=== PATIENT | male | born 1940 | race Caucasian/White ===

== ENCOUNTER 2017-08-01 16:24 | Inpatient (IN) ==
--- NOTE | 2017-08-01 18:50 | Family Practice History&Phys ---
History of Present Illness Chief complaint: wheezing HPI: I was called by our on-call nurse and the patient was having some wheezing audibly. She evaluated him and found that he needed supplemental oxygen and struggling to breathe more than he had been in last 24 hours. We transferred him [facility] for corrective mission. He denies shortness of breath wheezing chest pain tightness in the chest. He denies abdominal pain. He denies any problem. He does have moderate dementia. [facility] Patient Stated Medical History Dementia Yes Other HEENT Yes: GLASSES Congestive Heart Failure Yes Chronic Obstructive Pulmonary Yes Disease (COPD) - Social History Smoking status: Former smoker (recently quit) Current residence: Apartment/Private Home Medications Home Medications Medication Instructions Recorded Confirmed Type Aspirin Chewable [ASA] 81 mg PO DAILY tab.chew 07/31/17 Rx Carvedilol [Coreg] 12.5 mg PO BIDWM tab 07/31/17 Rx Cefdinir 300 mg PO Q12HR 4 Days cap 07/31/17 Rx Lisinopril [Prinivil] 20 mg PO DAILY tab 07/31/17 Rx Allergies Allergy/AdvReac Type Severity Reaction Status Date / Time No Known Allergies Allergy Verified 07/25/17 22:01 Exam Vital signs: Temperature 97.8 F 08/01/17 18:06 Pulse Rate 94 08/01/17 18:06 Respiratory Rate 36 H 08/01/17 18:06 Blood Pressure 133/84 08/01/17 18:06 Pulse Oximetry 92 08/01/17 18:06 - Constitutional mild distress, well developed - Routine HEENT Exam Head: Present: normocephalic, atraumatic Eye: Present: PERRL ENT: Present: mucous membranes moist Throat: normal inspection - Routine Neck Exam Present: supple - Routine Respiratory Exam Present: dyspnea, decreased breath sounds, prolonged expiratory phase - Routine Cardiovascular Exam Present: irregularly irregular - Routine Abdominal Exam Present: distended - Routine Extremities Exam Present: edema Comments: pitting edema at the ankle benedict. Results - Labs Result diagrams: 08/01/17 18:40 08/01/17 18:40 All other labs normal. Assessment and Plan - Assessment and Plan (1) Acute exacerbation of chronic obstructive airways disease Current visit: No Status: Acute Starting on duoneb and oxygen tks above 90. Also starting on Lasix (2) Congestive heart failure Current visit: No Status: Acute (3) Acute exacerbation of CHF (congestive heart failure) Current visit: No Status: Acute (4) Alzheimer's dementia without behavioral disturbance Current visit: No Status: Chronic (5) Sepsis Current visit: No Status: Acute
[2017-08-01] MEDS: FUROSEMIDE 40 MG/4 ML INJECTION IVP SCH ×2 (18:51→20:22)
[2017-08-01] MEDS: ALBUTEROL/IPRATROPIUM 2.5mg-0.5mg/3ml NEB AEROSOL SCH (19:10)
[2017-08-01] MEDS ORDERED: CEFDINIR 300 MG CAPSULE PO SCH ×2 (21:00)
[2017-08-01] MEDS ORDERED: MORPHINE SULFATE 2mg INJ IVP PRN (21:24)
[2017-08-01] MEDS: CEFTRIAXONE 1 G in NS 100 ML IV SCH (21:58)
[2017-08-01] MEDS ORDERED: LORazepam 0.5 MG TABLET PO PRN (23:47)
[2017-08-01] MEDS ORDERED: CEFTRIAXONE 500 MG INJECTION IM ONE (23:49)
[2017-08-01] MEDS: ACETAMINOPHEN 325 MG TABLET PO PRN (23:55)
[2017-08-02] MEDS ORDERED: ALBUTEROL 2.5mg/3ml (0.083%) NEB AEROSOL PRN (00:02)
[2017-08-02] MEDS: ALBUTEROL/IPRATROPIUM 2.5mg-0.5mg/3ml NEB AEROSOL SCH ×4 (07:57→19:47)
[2017-08-02] MEDS ORDERED: CARVEDILOL 12.5 MG TABLET PO SCH (08:00)
[2017-08-02] MEDS: LISINOPRIL 20 MG TABLET PO SCH (08:08)
[2017-08-02] MEDS: POLYETHYL GLYCOL 3350 17gm PACKET PO SCH (08:08)
[2017-08-02] MEDS: ASPIRIN 81 MG CHEWABLE TABLET PO SCH (08:08)
[2017-08-02] MEDS: CARVEDILOL 12.5 MG TABLET PO SCH ×2 (08:08→17:55)
[2017-08-02] MEDS: ACETAMINOPHEN 325 MG TABLET PO PRN ×2 (08:09→20:09)
[2017-08-02] MEDS: SALINE FLUSH 10ml SYRINGE IV PRN ×3 (09:00→18:04)
[2017-08-02] MEDS ORDERED: LISINOPRIL 20 MG TABLET PO SCH (09:00)
[2017-08-02] MEDS ORDERED: ASPIRIN 81 MG CHEWABLE TABLET PO SCH (09:00)
--- NOTE | 2017-08-02 09:00 | XRay Report ---
Indication: sob PROCEDURE: XR chest 1V: Encounter: Initial Comparison: July 27, 2017 Findings: The lungs are stable in appearance without new focal airspace consolidation. Continued hypoinflation. There is no pleural effusion or pneumothorax. The heart size, pulmonary vascularity and mediastinal contours are unchanged. IMPRESSION: Stable appearance of the chest without acute cardiopulmonary disease. .
--- NOTE | 2017-08-02 09:08 | Family Practice Progress Note ---
Progress Note-A&P - Time Spent With Patient Total time spent is greater than 50% in coordination of care (as documented) at patient's floor/unit and/or counseling patient: (1) Acute exacerbation of chronic obstructive airways disease Status: Acute Assessment and plan: He is continuing to get duoneb 4 times a day and oxygen. Albuterol was ordered apparently last night by the hospitalist. Generally he looks more comfortable breathing and it appears to be improved. Current Visit: No (2) Congestive heart failure Status: Acute Assessment and plan: He has improved oxygenation and less trouble breathing. Continue current diuretics. Current Visit: No (3) Acute exacerbation of CHF (congestive heart failure) Status: Acute Current Visit: No (4) Alzheimer's dementia without behavioral disturbance Status: Chronic Current Visit: No (5) Sepsis Status: Acute Assessment and plan: IV Rocephin is ordered daily. White blood cell count is improved. Current Visit: No (6) Delirium due to another medical condition Status: Acute Assessment and plan: Ativan was ordered last night. I think this will improve as his medical conditions improve. Current Visit: Yes (7) Back pain Status: Acute Assessment and plan: Currently Tylenol is ordered. Current Visit: Yes (8) Abdominal distension Status: Acute Assessment and plan: I'm going to order abdominal series today Current Visit: Yes Subjective - Subjective Principal diagnosis: CHF and COPD excerbation Interval history: He reports that he feels fine. He denies chest pain or troubles breathing or wheezing or tightness in the chest. During the night he did have some back pain and the nurse covering him called the hospitalists instead of me by mistake. He was work morphine and Ativan. He also pulled out his IV site and pulled off telemetry. He responded to Ativan. I was called during the night and ordered Tylenol and discontinued morphine. Exam Vital signs: Temperature 96.9 F 08/02/17 03:53 Pulse Rate 115 H 08/02/17 03:53 Respiratory Rate 28 H 08/02/17 07:57 Blood Pressure 166/86 H 08/02/17 03:53 Pulse Oximetry 93 08/02/17 07:57 Inpatient Medications: Generic Name Dose Route Start Last Admin Trade Name Freq PRN Reason Stop Dose Admin Acetaminophen 650 mg 08/01/17 23:48 08/02/17 08:09 Tylenol PO 650 mg Q8H PRN Administration Pain Albuterol Sulfate 2.5 mg 08/02/17 00:02 Proventil Neb (0.083%) AEROSOL Q4HPRN PRN Albuterol/Ipratropium 3 ml 08/01/17 19:00 08/02/17 07:57 Duoneb AEROSOL 3 ml RTQID VALENCIA Administration Aspirin 81 mg 08/02/17 09:00 08/02/17 08:08 Asa PO 81 mg DAILY VALENCIA Administration Carvedilol 12.5 mg 08/02/17 08:00 08/02/17 08:08 Coreg PO 12.5 mg BIDWM VALENCIA Administration Furosemide 40 mg 08/01/17 21:00 08/01/17 20:22 Lasix 40 Mg/4 Ml IVP Not Given Q12HR VALENCIA Ceftriaxone Sodium 1 g/ Sodium 100 mls @ 200 mls/hr 08/01/17 19:00 08/01/17 22:15 Chloride IV Infused Q24H VALENCIA Infusion Lisinopril 20 mg 08/02/17 09:00 08/02/17 08:08 Prinivil PO 20 mg DAILY VALENCIA Administration Lorazepam 0.5 mg 08/01/17 23:47 Ativan PO Q4H PRN Polyethylene Glycol 17 gm 08/02/17 09:00 08/02/17 08:08 Miralax PO 17 gm DAILY VALENCIA Administration Potassium Chloride 10 meq 08/02/17 08:00 08/02/17 08:09 Micro-K 10 Meq Capsule PO 10 meq BIDWM VALENCIA Administration Discontinued Medications Generic Name Dose Route Start Last Admin Trade Name Freq PRN Reason Stop Dose Admin Cefdinir 300 mg 08/01/17 21:00 Omnicef PO Q12HR VALENCIA Cefdinir 300 mg 08/01/17 21:00 Omnicef PO Q12HR VALENCIA Ceftriaxone Sodium 500 mg 08/01/17 23:49 08/02/17 00:11 Rocephin IM 08/01/17 23:50 500 mg O ONE Administration Lorazepam 0.5 mg 08/01/17 21:25 08/01/17 21:51 Ativan Inj IVP 0.5 mg Q4H PRN Administration Morphine Sulfate 2 mg 08/01/17 21:24 08/01/17 21:54 Morphine Sulfate Inj IVP 2 mg Q2H PRN Administration Pain - Constitutional no acute distress Comments: Generally looks more comfortable breathing and does not appear to be in distress at all today. He seems calm and at peace. He responds appropriately to questions and looks happy. - Routine HEENT Exam Head: Present: normocephalic, atraumatic - Routine Neck Exam Present: supple - Routine Respiratory Exam Comments: He has some audible wheezing. He has expiratory wheezes on auscultation. No crackles. Air movement is poor. - Routine Cardiovascular Exam Present: irregularly irregular Comments: Rate is controlled - Routine Abdominal Exam Comments: His abdomen is firm. It looks distended to me. He has a paucity of bowel sounds. - Routine Extremities Exam Comments: 1+ edema just above the ankles bilaterally
[2017-08-02] MEDS: FUROSEMIDE 40 MG/4 ML INJECTION IVP SCH ×2 (09:33→20:09)
--- NOTE | 2017-08-02 09:50 | XRay Report ---
INDICATION: chf PROCEDURE: CHEST 2-VIEWS UPRIGHT (PA & LAT) Encounter: Initial COMPARISON: August 01, 2017 FINDINGS: Motion artifact. Lungs are grossly clear and stable with mild hypoinflation. The heart size, mediastinal contours and pulmonary vascularity are unchanged. IMPRESSION: Stable appearance of the chest. .
--- NOTE | 2017-08-02 10:05 | XRay Report ---
Indication: abdominal distention PROCEDURE: XR abdomen 2V: Encounter: Initial Comparison: None Findings: No gross free air. The bowel gas pattern shows mild colonic distention with moderate to large amount of stool. No definite abnormally dilated small bowel loops appreciated. Gas is seen to the level of the rectum. Multiple overlying monitoring leads. Impression: Colonic distention suggesting an ileus or constipation. .
[2017-08-02] MEDS: DOCUSATE SODIUM 100 MG CAPSULE PO PRN ×2 (11:40→17:55)
[2017-08-02] MEDS: CEFTRIAXONE 1 G in NS 100 ML IV SCH (18:01)
[2017-08-02] MEDS: NS FLUSH BAG 500ml IV PRN (18:04)
[2017-08-03] MEDS: ALBUTEROL/IPRATROPIUM 2.5mg-0.5mg/3ml NEB AEROSOL SCH ×4 (07:25→19:48)
--- NOTE | 2017-08-03 08:58 | Family Practice Progress Note ---
Progress Note-A&P - Time Spent With Patient Total time spent is greater than 50% in coordination of care (as documented) at patient's floor/unit and/or counseling patient: (1) Acute exacerbation of chronic obstructive airways disease Status: Acute Assessment and plan: Stable. Still has expiratory wheezing and crackles. Current Visit: No (2) Congestive heart failure Status: Acute Current Visit: No (3) Acute exacerbation of CHF (congestive heart failure) Status: Acute Current Visit: No (4) Alzheimer's dementia without behavioral disturbance Status: Chronic Current Visit: No (5) Sepsis Status: Acute Assessment and plan: IV Rocephin is ordered daily. White blood cell count is increasing. I'm checking a chest x-ray. Recheck CBC tomorrow Current Visit: No (6) Delirium due to another medical condition Status: Acute Assessment and plan: No problems in the last 24 hours Current Visit: Yes (7) Back pain Status: Acute Assessment and plan: Currently Tylenol is ordered. Current Visit: Yes (8) Abdominal distension Status: Acute Current Visit: Yes Subjective - Subjective Principal diagnosis: COPD/CHF exacerbation Interval history: He reports he's fine. He has not complained at all during any of the hospitalizations. He denies shortness of breath chest pain. Exam Vital signs: Temperature 95.8 F L 08/03/17 08:07 Pulse Rate 84 08/03/17 08:26 Respiratory Rate 22 08/03/17 08:07 Blood Pressure 140/86 H 08/03/17 08:07 Pulse Oximetry 93 08/03/17 08:26 Inpatient Medications: Generic Name Dose Route Start Last Admin Trade Name Freq PRN Reason Stop Dose Admin Acetaminophen 650 mg 08/01/17 23:48 08/02/17 20:09 Tylenol PO 650 mg Q8H PRN Administration Pain Albuterol Sulfate 2.5 mg 08/02/17 00:02 Proventil Neb (0.083%) AEROSOL Q4HPRN PRN Albuterol/Ipratropium 3 ml 08/01/17 19:00 08/03/17 07:25 Duoneb AEROSOL 3 ml RTQID VALENCIA Administration Aspirin 81 mg 08/02/17 09:00 08/02/17 08:08 Asa PO 81 mg DAILY VALENCIA Administration Carvedilol 12.5 mg 08/02/17 08:00 08/02/17 17:55 Coreg PO 12.5 mg BIDWM VALENCIA Administration Docusate Sodium 100 mg 08/02/17 10:27 08/02/17 17:55 Colace PO 100 mg BID PRN Administration Furosemide 40 mg 08/01/17 21:00 08/02/17 20:09 Lasix 40 Mg/4 Ml IVP 40 mg Q12HR VALENCIA Administration Ceftriaxone Sodium 1 g/ Sodium 100 mls @ 200 mls/hr 08/01/17 19:00 08/02/17 18:38 Chloride IV Infused Q24H VALENCIA Infusion Lisinopril 20 mg 08/02/17 09:00 08/02/17 08:08 Prinivil PO 20 mg DAILY VALENCIA Administration Lorazepam 0.5 mg 08/01/17 23:47 Ativan PO Q4H PRN Magnesium Hydroxide 30 ml 08/02/17 10:27 08/02/17 11:40 Mom PO 30 ml DAILY PRN Administration Constipation Polyethylene Glycol 17 gm 08/02/17 09:00 08/02/17 08:08 Miralax PO 17 gm DAILY VALENCIA Administration Potassium Chloride 10 meq 08/02/17 08:00 08/02/17 17:55 Micro-K 10 Meq Capsule PO 10 meq BIDWM VALENCIA Administration Sodium Chloride 10 ml 08/02/17 18:03 08/02/17 18:04 Iv Flush IV 10 ml PRN PRN Administration Flushing Sodium Chloride 500 ml 08/02/17 18:03 08/02/17 18:04 Normal Saline IV 500 ml PRN PRN Administration Discontinued Medications Generic Name Dose Route Start Last Admin Trade Name Freq PRN Reason Stop Dose Admin Cefdinir 300 mg 08/01/17 21:00 Omnicef PO Q12HR VALENCIA Cefdinir 300 mg 08/01/17 21:00 Omnicef PO Q12HR VALENCIA Ceftriaxone Sodium 500 mg 08/01/17 23:49 08/02/17 00:11 Rocephin IM 08/01/17 23:50 500 mg O ONE Administration Lorazepam 0.5 mg 08/01/17 21:25 08/01/17 21:51 Ativan Inj IVP 0.5 mg Q4H PRN Administration Morphine Sulfate 2 mg 08/01/17 21:24 08/01/17 21:54 Morphine Sulfate Inj IVP 2 mg Q2H PRN Administration Pain - Constitutional no acute distress - Routine HEENT Exam Head: Present: normocephalic - Routine Respiratory Exam Present: decreased breath sounds Comments: He has some audible crackles when the breeze. Especially expiratory. He is not retracting. - Routine Cardiovascular Exam Present: irregularly irregular - Routine Abdominal Exam Comments: Less firm today. - Routine Extremities Exam Comments: No pitting edema
[2017-08-03] MEDS: LISINOPRIL 20 MG TABLET PO SCH (09:51)
[2017-08-03] MEDS: CARVEDILOL 12.5 MG TABLET PO SCH ×2 (09:51→17:24)
[2017-08-03] MEDS: ASPIRIN 81 MG CHEWABLE TABLET PO SCH (09:51)
[2017-08-03] MEDS: DOCUSATE SODIUM 100 MG CAPSULE PO PRN (09:51)
[2017-08-03] MEDS: POLYETHYL GLYCOL 3350 17gm PACKET PO SCH (09:52)
[2017-08-03] MEDS: FUROSEMIDE 40 MG/4 ML INJECTION IVP SCH ×2 (09:52→20:11)
[2017-08-03] MEDS ORDERED: FLEET PHOSPHO - SODA ENEMA 133ml PR PRN (14:24)
--- NOTE | 2017-08-03 15:33 | XRay Report ---
LOCATION OF DICTATION: [facility] EXAM: XR chest 2V HISTORY: sob, increasing wbc COMPARISON: No prior studies available for comparison. FINDINGS: The heart size is normal. The mediastinal configuration is unremarkable. Limited depth of inspiration with bibasilar atelectasis. There are no consolidating opacities or pleural effusions. There is no evidence for a pneumothorax. Moderate spondylosis of the thoracic spine. IMPRESSION: Limited depth of inspiration with crowding of the interstitial lung markings and bibasilar atelectasis without evidence for developing pneumonia. The heart size is within normal limits. .
[2017-08-03 16:35] VITALS: BMI 34.4
[2017-08-03] MEDS: ACETAMINOPHEN 325 MG TABLET PO PRN (17:24)
[2017-08-03] MEDS: NS FLUSH BAG 500ml IV PRN (17:25)
[2017-08-03] MEDS: CEFTRIAXONE 1 G in NS 100 ML IV SCH (18:09)
--- NOTE | 2017-08-04 06:45 | Family Practice Progress Note ---
Progress Note-A&P - Time Spent With Patient Total time spent is greater than 50% in coordination of care (as documented) at patient's floor/unit and/or counseling patient: (1) Acute exacerbation of chronic obstructive airways disease Status: Acute Assessment and plan: Oxygenating better. Overall seems to be more stable Current Visit: No (2) Congestive heart failure Status: Acute Assessment and plan: Continue current diuretics. At this point it appears stable Current Visit: No (3) Acute exacerbation of CHF (congestive heart failure) Status: Acute Current Visit: No (4) Alzheimer's dementia without behavioral disturbance Status: Chronic Current Visit: No (5) Sepsis Status: Acute Assessment and plan: My blood cell count is decreasing. He's remained afebrile. Continue Rocephin Current Visit: No (6) Delirium due to another medical condition Status: Acute Assessment and plan: Stable at this point. No behavioral problems in the last 24 hours Current Visit: Yes (7) Back pain Status: Acute Assessment and plan: Currently Tylenol is ordered. Current Visit: Yes (8) Abdominal distension Status: Suspected Current Visit: Yes Subjective - Subjective Interval history: He reports that he feels fine. He denies nausea vomiting, fever. He denies abdominal pain. He denies chest pain or shortness of breath Exam Vital signs: Temperature 97.6 F 08/04/17 04:00 Pulse Rate 84 08/04/17 04:00 Respiratory Rate 14 08/04/17 04:00 Blood Pressure 124/59 08/04/17 04:00 Pulse Oximetry 92 08/04/17 04:00 Inpatient Medications: Generic Name Dose Route Start Last Admin Trade Name Freq PRN Reason Stop Dose Admin Acetaminophen 650 mg 08/01/17 23:48 08/03/17 17:24 Tylenol PO 650 mg Q8H PRN Administration Pain Albuterol Sulfate 2.5 mg 08/02/17 00:02 Proventil Neb (0.083%) AEROSOL Q4HPRN PRN Albuterol/Ipratropium 3 ml 08/01/17 19:00 08/03/17 19:48 Duoneb AEROSOL 3 ml RTQID VALENCIA Administration Aspirin 81 mg 08/02/17 09:00 08/03/17 09:51 Asa PO 81 mg DAILY VALENCIA Administration Carvedilol 12.5 mg 08/02/17 08:00 08/03/17 17:24 Coreg PO 12.5 mg BIDWM VALENCIA Administration Docusate Sodium 100 mg 08/02/17 10:27 08/03/17 09:51 Colace PO 100 mg BID PRN Administration Furosemide 40 mg 08/01/17 21:00 08/03/17 20:11 Lasix 40 Mg/4 Ml IVP 40 mg Q12HR VALENCIA Administration Ceftriaxone Sodium 1 g/ Sodium 100 mls @ 200 mls/hr 08/01/17 19:00 08/03/17 20:34 Chloride IV Infused Q24H VALENCIA Infusion Lisinopril 20 mg 08/02/17 09:00 08/03/17 09:51 Prinivil PO 20 mg DAILY VALENCIA Administration Lorazepam 0.5 mg 08/01/17 23:47 Ativan PO Q4H PRN Magnesium Hydroxide 30 ml 08/02/17 10:27 08/03/17 12:50 Mom PO 30 ml DAILY PRN Administration Constipation Polyethylene Glycol 17 gm 08/02/17 09:00 08/03/17 09:52 Miralax PO 17 gm DAILY [facility] Administration Potassium Chloride 10 meq 08/02/17 08:00 08/03/17 17:25 Micro-K 10 Meq Capsule PO 10 meq BIDWM VALENCIA Administration Sodium Chloride 10 ml 08/02/17 18:03 08/02/17 18:04 Iv Flush IV 10 ml PRN PRN Administration Flushing Sodium Chloride 500 ml 08/02/17 18:03 08/03/17 17:25 Normal Saline IV 500 ml PRN PRN Administration Sodium Phosphate 1 enema 08/03/17 14:24 08/03/17 14:27 Fleet Enema [place] 1 enema PRN PRN Administration Discontinued Medications Generic Name Dose Route Start Last Admin Trade Name Freq PRN Reason Stop Dose Admin Cefdinir 300 mg 08/01/17 21:00 Omnicef PO Q12HR VALENCIA Cefdinir 300 mg 08/01/17 21:00 Omnicef PO Q12HR [facility] Ceftriaxone Sodium 500 mg 08/01/17 23:49 08/02/17 00:11 Rocephin IM 08/01/17 23:50 500 mg O ONE Administration Lorazepam 0.5 mg 08/01/17 21:25 08/01/17 21:51 Ativan Inj IVP 0.5 mg Q4H PRN Administration Morphine Sulfate 2 mg 08/01/17 21:24 08/01/17 21:54 Morphine Sulfate Inj IVP 2 mg Q2H PRN Administration Pain - Constitutional no acute distress Comments: Looks very comfortable today. He does have some audible breath sounds - Routine HEENT Exam Head: Present: normocephalic, atraumatic - Routine Neck Exam Present: supple - Routine Respiratory Exam Present: decreased breath sounds Comments: He cannot sit up for me to listen to his posterior lung car. Anterior he sounded clear. He does make some rattle the sound when he expires. It sounds upper respiratory - Routine Cardiovascular Exam Present: RRR - Routine Abdominal Exam Comments: Abdomen was more soft today. He definitely had good bowel sounds. Less distended - Routine Extremities Exam Comments: And one plus edema just above the ankles
[2017-08-04] MEDS: ALBUTEROL/IPRATROPIUM 2.5mg-0.5mg/3ml NEB AEROSOL SCH ×4 (08:05→20:04)
[2017-08-04] MEDS: LISINOPRIL 20 MG TABLET PO SCH (09:10)
[2017-08-04] MEDS: ASPIRIN 81 MG CHEWABLE TABLET PO SCH (09:11)
[2017-08-04] MEDS: CARVEDILOL 12.5 MG TABLET PO SCH ×2 (09:11→17:41)
[2017-08-04] MEDS: POLYETHYL GLYCOL 3350 17gm PACKET PO SCH (09:11)
[2017-08-04] MEDS: FUROSEMIDE 40 MG/4 ML INJECTION IVP SCH ×2 (09:11→21:06)
[2017-08-04] MEDS: ACETAMINOPHEN 325 MG TABLET PO PRN (13:28)
[2017-08-04] MEDS: CEFTRIAXONE 1 G in NS 100 ML IV SCH (19:01)
[2017-08-04] MEDS: SALINE FLUSH 10ml SYRINGE IV PRN (21:06)
[2017-08-04] MEDS ORDERED: FALL RISK - PHARMACY CONSULT MC ONE (21:14)
--- NOTE | 2017-08-05 06:51 | Family Practice Progress Note ---
Progress Note-A&P - Time Spent With Patient Total time spent is greater than 50% in coordination of care (as documented) at patient's floor/unit and/or counseling patient: (1) Acute exacerbation of chronic obstructive airways disease Status: Acute Assessment and plan: Oxygenating better. Overall seems to be more stable. Continue the nebulized medication. Current Visit: No (2) Congestive heart failure Status: Acute Assessment and plan: Switch to PO Lasix. Current Visit: No (3) Acute exacerbation of CHF (congestive heart failure) Status: Acute Current Visit: No (4) Alzheimer's dementia without behavioral disturbance Status: Chronic Current Visit: No (5) Sepsis Status: Acute Assessment and plan: The white blood cell count is pending. Currently getting IV Rocephin. I think this as well as keeping him in the hospital at this point. It continues to improve would consider Addison Vega tomorrow. Long-term he is wanting to move to [place] to be with his daughter. His son and daughter are making arrangements for that to the best of my knowledge. Current Visit: No (6) Delirium due to another medical condition Status: Suspected Current Visit: Yes (7) Back pain Status: Acute Assessment and plan: Currently Tylenol is ordered. Current Visit: Yes (8) Abdominal distension Status: Suspected Assessment and plan: Seems to have been related to constipation. He had a large, me yesterday and denies pain today. No abdominal distention at this point. Current Visit: Yes Subjective - Subjective Principal diagnosis: chf copd exc Interval history: He is feeling better. He denies any shortness of breath chest pain. He had a large, me yesterday and denies abdominal pain. Exam Vital signs: Temperature 99.6 F 08/05/17 03:00 Pulse Rate 97 08/05/17 03:00 Respiratory Rate 22 08/05/17 03:00 Blood Pressure 140/74 H 08/05/17 03:00 Pulse Oximetry 90 08/05/17 03:00 Inpatient Medications: Generic Name Dose Route Start Last Admin Trade Name Freq PRN Reason Stop Dose Admin Acetaminophen 650 mg 08/01/17 23:48 08/04/17 13:28 Tylenol PO 650 mg Q8H PRN Administration Pain Albuterol Sulfate 2.5 mg 08/02/17 00:02 Proventil Neb (0.083%) AEROSOL Q4HPRN PRN Albuterol/Ipratropium 3 ml 08/01/17 19:00 08/04/17 20:04 Duoneb AEROSOL 3 ml RTQID VALENCIA Administration Aspirin 81 mg 08/02/17 09:00 08/04/17 09:11 Asa PO 81 mg DAILY VALENCIA Administration Carvedilol 12.5 mg 08/02/17 08:00 08/04/17 17:41 Coreg PO 12.5 mg BIDWM VALENCIA Administration Docusate Sodium 100 mg 08/02/17 10:27 08/03/17 09:51 Colace PO 100 mg BID PRN Administration Furosemide 40 mg 08/05/17 09:00 Lasix 40 Mg Tab PO DAILY VALENCIA Ceftriaxone Sodium 1 g/ Sodium 100 mls @ 200 mls/hr 08/01/17 19:00 08/04/17 19:45 Chloride IV Infused Q24H VALENCIA Infusion Lisinopril 20 mg 08/02/17 09:00 08/04/17 09:10 Prinivil PO 20 mg DAILY [facility] Administration Lorazepam 0.5 mg 08/01/17 23:47 Ativan PO Q4H PRN Magnesium Hydroxide 30 ml 08/02/17 10:27 08/03/17 12:50 Mom PO 30 ml DAILY PRN Administration Constipation Pharmacy Consult each 08/04/17 21:14 Pharmacy Consult - Fall Risk 08/04/17 21:15 ONE TIME ONE Polyethylene Glycol 17 gm 08/02/17 09:00 08/04/17 09:11 Miralax PO 17 gm DAILY VALENCIA Administration Potassium Chloride 10 meq 08/05/17 08:00 K-Dur 10 Meq Tablet PO WB [facility] Sodium Chloride 10 ml 08/02/17 18:03 08/04/17 21:06 Iv Flush IV 10 ml PRN PRN Administration Flushing Sodium Chloride 500 ml 08/02/17 18:03 08/03/17 17:25 Normal Saline IV 500 ml PRN PRN Administration Sodium Phosphate 1 enema 08/03/17 14:24 08/03/17 14:27 Fleet Enema [place] 1 enema PRN PRN Administration Discontinued Medications Generic Name Dose Route Start Last Admin Trade Name Freq PRN Reason Stop Dose Admin Cefdinir 300 mg 08/01/17 21:00 Omnicef PO Q12HR VALENCIA Cefdinir 300 mg 08/01/17 21:00 Omnicef PO Q12HR VALENCIA Ceftriaxone Sodium 500 mg 08/01/17 23:49 08/02/17 00:11 Rocephin IM 08/01/17 23:50 500 mg O ONE Administration Furosemide 40 mg 08/01/17 21:00 08/04/17 21:06 Lasix 40 Mg/4 Ml IVP 40 mg Q12HR VALENCIA Administration Lorazepam 0.5 mg 08/01/17 21:25 08/01/17 21:51 Ativan Inj IVP 0.5 mg Q4H PRN Administration Morphine Sulfate 2 mg 08/01/17 21:24 08/01/17 21:54 Morphine Sulfate Inj IVP 2 mg Q2H PRN Administration Pain Potassium Chloride 10 meq 08/02/17 08:00 08/04/17 17:41 Micro-K 10 Meq Capsule PO 10 meq BIDWM VALENCIA Administration - Constitutional no acute distress - Routine HEENT Exam Head: Present: normocephalic, atraumatic - Routine Neck Exam Present: supple - Routine Respiratory Exam Comments: He is not having any respiratory distress signs. He is relaxed and breathing without effort. He does have audible crackles. I tried to get him to cough and clear those. He doesn't have a strong cough. When he does cough it sounds wet croupie. His lung sounds are clear anterior. - Routine Cardiovascular Exam Present: irregularly irregular - Routine Extremities Exam Present: no edema
[2017-08-05] MEDS: ALBUTEROL/IPRATROPIUM 2.5mg-0.5mg/3ml NEB AEROSOL SCH ×4 (07:06→19:16)
--- NOTE | 2017-08-05 08:44 | Infectious Disease Consult ---
Infectious Disease Consult Date of Consultation: 08/05/17 Requesting Physician: Bowen Pastor Reason for Consultation: leukocytosis History of Present Illness: Mr. Bradshaw is a 76 y/o man who was admitted here on August 01 because of difficulty breathing and audible wheezing. He denies much in the way of symptoms however per records he has moderate dementia. He denies any symptoms to me on detailed questioning of review of systems. He was hypoxic on admission. He was noted to have pitting edema of the lower extremities on admission. Blood cultures on admission August 01 are no growth after 3 days. Chest x-rays have not shown any infiltrates but they have shown bibasilar atelectasis. He has been on Rocephin since admission August 01. His white blood cell count on admission was 15. He continues to have leukocytosis and his white blood cell count today is 18,000. Of note he was recently hospitalized here July 25 through the with similar symptoms and treated for CHF exacerbation. His blood cultures drawn July 25 were no growth after 5 days. His white blood cell count during his recent admission ranged from 12,000 and peaked at about 20,000 but decreased down to 11,000 on discharge. He was readmitted just 2 days after his discharge. He has not received any recent steroids. Urinalysis has been checked on July 25 July 28 and August 05. None of those flagged a reflex culture. Per discussion with our and patient's family is trying to move him to [place] to be closer to family. It appears that he was on cefdinir on admission. Medications Home Medications Medication Instructions Recorded Confirmed Type Aspirin Chewable [ASA] 81 mg PO DAILY tab.chew 07/31/17 08/02/17 Rx Carvedilol [Coreg] 12.5 mg PO BIDWM tab 07/31/17 08/02/17 Rx Cefdinir 300 mg PO Q12HR 4 Days cap 07/31/17 08/02/17 Rx Lisinopril [Prinivil] 20 mg PO DAILY tab 07/31/17 08/02/17 Rx Allergies Allergy/AdvReac Type Severity Reaction Status Date / Time No Known Allergies Allergy Verified 07/25/17 22:01 [facility] Patient Stated Medical History Dementia Yes Other HEENT Yes: GLASSES Congestive Heart Failure Yes Chronic Obstructive Pulmonary Yes Disease (COPD) Other GI Yes: constipation Surgical History: denies Family History: Reviewed and noncontributory - Social History Smoking status: Former smoker Current residence: [place]isted Review of Systems ROS unobtainable: due to mental status (patient denies any symptoms ) Exam Vital Signs: Temperature 97.6 F 08/05/17 07:40 Pulse Rate 98 08/05/17 07:40 Respiratory Rate 32 H 08/05/17 07:40 Blood Pressure 138/93 H 08/05/17 07:40 Pulse Oximetry 90 08/05/17 07:40 Height/Weight/BMI: Height 1.7 m Weight 100.8 kg Body Mass Index 34.4 - Constitutional Present: no acute distress, well nourished, well developed, obese - Routine HEENT Exam Head: Present: normocephalic, atraumatic Eye: Present: EOMI, PERRL ENT: Present: mucous membranes dry, oropharynx clear - Routine Neck Exam Present: supple - Routine Respiratory Exam Present: prolonged expiratory phase, wheezes (expiratory). Absent: accessory muscle use, rales - Routine Cardiovascular Exam Present: RRR - Routine Abdominal Exam Present: soft, non tender, distended, firm Comments: decreased bowel sounds - Routine Exam Comments: no santos, no bladder distention - Routine Extremities Exam Present: edema (trace LEs). Absent: cyanosis, clubbing - Routine Skin Exam Present: intact. Absent: cyanosis, erythema, rash - Routine Neurological Exam Present: alert, CN II-XII intact, altered mental status (not able to answer detailed questions), normal speech. Absent: motor deficit - Routine Psychiatric Exam Present: normal affect Results - Labs CBC & Chem 7: 08/05/17 04:34 08/05/17 04:34 Microbiology Results: Microbiology 08/01/17 19:28 Peripheral/Iv Start Blood Culture - Preliminary No Growth After 3 Days 08/01/17 19:21 Peripheral/Iv Start Blood Culture - Preliminary No Growth After 3 Days Impression: Leukocytosis, unclear etiology, suspect stress reaction Ileus on KUB CHF vs COPD exacerbation EF 55% on recent echo Peripheral edema Alzheimer's dementia Recommendation: This point I'm not sure exactly what the ceftriaxone is treating and I would like to stop it. I will check a pro-calcitonin which has shown to be helpful in respiratory infections, specifically, this test should be elevated in patients with bacterial infections. I will also check a liver function panel. Suspect he might need a little bit more diuresis. We'll continue to monitor his white blood cell count. Discussed with Dr. Pastor.
[2017-08-05] MEDS: POLYETHYL GLYCOL 3350 17gm PACKET PO SCH (08:48)
[2017-08-05] MEDS: ASPIRIN 81 MG CHEWABLE TABLET PO SCH (08:48)
[2017-08-05] MEDS: CARVEDILOL 12.5 MG TABLET PO SCH ×2 (08:48→18:17)
[2017-08-05] MEDS: LISINOPRIL 20 MG TABLET PO SCH (08:48)
[2017-08-05] MEDS ORDERED: FUROSEMIDE 40 MG TABLET PO SCH (09:00)
[2017-08-05] MEDS ORDERED: IODIXANOL 320mg/ml 100ml INJECTION IV ONE (14:34)
[2017-08-05] MEDS ORDERED: SALINE FLUSH 10ml SYRINGE ONE (14:34)
[2017-08-05] MEDS ORDERED: ENOXAPARIN 100 MG/ML INJECTION SQ SCH (18:30)
[2017-08-06] MEDS: ALBUTEROL/IPRATROPIUM 2.5mg-0.5mg/3ml NEB AEROSOL SCH ×4 (08:02→18:33)
--- NOTE | 2017-08-06 08:23 | Family Practice Progress Note ---
Progress Note-A&P - Time Spent With Patient Total time spent is greater than 50% in coordination of care (as documented) at patient's floor/unit and/or counseling patient: (1) Acute exacerbation of chronic obstructive airways disease Status: Acute Assessment and plan: Oxygenating better. Overall seems to be more stable. Continue the nebulized medication. Current Visit: No (2) Congestive heart failure Status: Acute Assessment and plan: Stable at this point Lasix held today because of acute renal insufficiency Current Visit: No (3) Acute exacerbation of CHF (congestive heart failure) Status: Acute Current Visit: No (4) Alzheimer's dementia without behavioral disturbance Status: Chronic Current Visit: No (5) Sepsis Status: Acute Assessment and plan: Rocephin discontinued. He had infectious disease consult yesterday. It does not appear to be sepsis at this time. Current Visit: No (6) Delirium due to another medical condition Status: Suspected Current Visit: Yes (7) Back pain Status: Acute Current Visit: Yes (8) Abdominal distension Status: Suspected Current Visit: Yes (9) Pulmonary embolism Status: Acute Assessment and plan: I'm going to switch to Xarelto from lovenox. Current Visit: Yes Subjective - Subjective Interval history: He denies pain. He denies chest pain and shortness of breath nausea. He does not know on this last bowel movement was. Exam Vital signs: Temperature 98.7 F 08/06/17 07:39 Pulse Rate 79 08/06/17 07:39 Respiratory Rate 20 08/06/17 08:02 Blood Pressure 119/66 08/06/17 07:39 Pulse Oximetry 93 08/06/17 08:02 Inpatient Medications: Generic Name Dose Route Start Last Admin Trade Name Freq PRN Reason Stop Dose Admin Acetaminophen 650 mg 08/01/17 23:48 08/04/17 13:28 Tylenol PO 650 mg Q8H PRN Administration Pain Albuterol Sulfate 2.5 mg 08/02/17 00:02 Proventil Neb (0.083%) AEROSOL Q4HPRN PRN Albuterol/Ipratropium 3 ml 08/01/17 19:00 08/06/17 08:02 Duoneb AEROSOL 3 ml RTQID VALENCIA Administration Aspirin 81 mg 08/02/17 09:00 08/05/17 08:48 Asa PO 81 mg DAILY VALENCIA Administration Carvedilol 12.5 mg 08/02/17 08:00 08/05/17 18:17 Coreg PO 12.5 mg BIDWM VALENCIA Administration Docusate Sodium 100 mg 08/02/17 10:27 08/03/17 09:51 Colace PO 100 mg BID PRN Administration Enoxaparin Sodium 100 mg 08/05/17 18:30 08/05/17 19:10 Lovenox SQ 100 mg BID VALENCIA Administration Furosemide 40 mg 08/05/17 09:00 08/05/17 08:48 Lasix 40 Mg Tab PO 40 mg DAILY VALENCIA Administration Lisinopril 20 mg 08/02/17 09:00 08/05/17 08:48 Prinivil PO 20 mg DAILY VALENCIA Administration Lorazepam 0.5 mg 08/01/17 23:47 Ativan PO Q4H PRN Magnesium Hydroxide 30 ml 08/02/17 10:27 08/03/17 12:50 Mom PO 30 ml DAILY PRN Administration Constipation Polyethylene Glycol 17 gm 08/02/17 09:00 08/05/17 08:48 Miralax PO 17 gm DAILY VALENCIA Administration Potassium Chloride 10 meq 08/05/17 08:00 08/05/17 08:48 K-Dur 10 Meq Tablet PO 10 meq WB VALENCIA Administration Sodium Chloride 10 ml 08/02/17 18:03 08/04/17 21:06 Iv Flush IV 10 ml PRN PRN Administration Flushing Sodium Chloride 500 ml 08/02/17 18:03 08/03/17 17:25 Normal Saline IV 500 ml PRN PRN Administration Sodium Phosphate 1 enema 08/03/17 14:24 08/03/17 14:27 Fleet Enema [place] 1 enema PRN PRN Administration Discontinued Medications Generic Name Dose Route Start Last Admin Trade Name Freq PRN Reason Stop Dose Admin Cefdinir 300 mg 08/01/17 21:00 Omnicef PO Q12HR VALENCIA Cefdinir 300 mg 08/01/17 21:00 Omnicef PO Q12HR VALENCIA Ceftriaxone Sodium 500 mg 08/01/17 23:49 08/02/17 00:11 Rocephin IM 08/01/17 23:50 500 mg O ONE Administration Furosemide 40 mg 08/01/17 21:00 08/04/17 21:06 Lasix 40 Mg/4 Ml IVP 40 mg Q12HR VALENCIA Administration Ceftriaxone Sodium 1 g/ Sodium 100 mls @ 200 mls/hr 08/01/17 19:00 08/04/17 19:45 Chloride IV Infused Q24H VALENCIA Infusion Lorazepam 0.5 mg 08/01/17 21:25 08/01/17 21:51 Ativan Inj IVP 0.5 mg Q4H PRN Administration Morphine Sulfate 2 mg 08/01/17 21:24 08/01/17 21:54 Morphine Sulfate Inj IVP 2 mg Q2H PRN Administration Pain Pharmacy Consult each 08/04/17 21:14 Pharmacy Consult - Fall Risk [facility] 08/04/17 21:15 ONE TIME ONE Potassium Chloride 10 meq 08/02/17 08:00 08/04/17 17:41 Micro-K 10 Meq Capsule PO 10 meq BIDWM VALENCIA Administration - Constitutional no acute distress - Routine HEENT Exam Head: Present: normocephalic, atraumatic - Routine Neck Exam Present: supple - Routine Respiratory Exam Comments: He has audible expiratory crackles from his mouth. Lung sounds are clear anterior. No expiratory wheezes. No retractions. - Routine Cardiovascular Exam Present: irregularly irregular - Routine Abdominal Exam Present: soft, normoactive bowel sounds - Routine Extremities Exam Present: no edema
--- NOTE | 2017-08-06 08:35 | Family Practice Progress Note ---
Progress Note-A&P - Time Spent With Patient Total time spent is greater than 50% in coordination of care (as documented) at patient's floor/unit and/or counseling patient: (1) Acute exacerbation of chronic obstructive airways disease Status: Acute Assessment and plan: Oxygenating better. Overall seems to be more stable. Continue the nebulized medication. Current Visit: No (2) Congestive heart failure Status: Acute Assessment and plan: Stable at this point Lasix held today because of acute renal insufficiency Current Visit: No (3) Acute exacerbation of CHF (congestive heart failure) Status: Acute Current Visit: No (4) Alzheimer's dementia without behavioral disturbance Status: Chronic Current Visit: No (5) Sepsis Status: Acute Assessment and plan: Rocephin discontinued. He had infectious disease consult yesterday. It does not appear to be sepsis at this time. Current Visit: No (6) Delirium due to another medical condition Status: Suspected Assessment and plan: Stable at this point. No behavioral problems in the last 24 hours Current Visit: Yes (7) Back pain Status: Acute Assessment and plan: Currently Tylenol is ordered. Current Visit: Yes (8) Abdominal distension Status: Suspected Assessment and plan: Seems to have been related to constipation. He had a large, me yesterday and denies pain today. No abdominal distention at this point. Current Visit: Yes (9) Pulmonary embolism Status: Acute Assessment and plan: I'm going to switch to Xarelto from lovenox. Current Visit: Yes (10) Acute on chronic renal failure Status: Acute Assessment and plan: suspected from iv contrast. Holding lisinopril and lasix today and recheck tomorrow. Current Visit: Yes Exam Vital signs: Temperature 98.7 F 08/06/17 07:39 Pulse Rate 79 08/06/17 07:39 Respiratory Rate 20 08/06/17 08:02 Blood Pressure 119/66 08/06/17 07:39 Pulse Oximetry 93 08/06/17 08:02 Inpatient Medications: Generic Name Dose Route Start Last Admin Trade Name Freq PRN Reason Stop Dose Admin Acetaminophen 650 mg 08/01/17 23:48 08/04/17 13:28 Tylenol PO 650 mg Q8H PRN Administration Pain Albuterol Sulfate 2.5 mg 08/02/17 00:02 Proventil Neb (0.083%) AEROSOL Q4HPRN PRN Albuterol/Ipratropium 3 ml 08/01/17 19:00 08/06/17 08:02 Duoneb AEROSOL 3 ml RTQID VALENCIA Administration Aspirin 81 mg 08/02/17 09:00 08/05/17 08:48 Asa PO 81 mg DAILY VALENCIA Administration Carvedilol 12.5 mg 08/02/17 08:00 08/05/17 18:17 Coreg PO 12.5 mg BIDWM [facility] Administration Docusate Sodium 100 mg 08/02/17 10:27 08/03/17 09:51 Colace PO 100 mg BID PRN Administration Furosemide 40 mg 08/05/17 09:00 08/05/17 08:48 Lasix 40 Mg Tab PO 40 mg DAILY [facility] Administration Lisinopril 20 mg 08/02/17 09:00 08/05/17 08:48 Prinivil PO 20 mg DAILY [facility] Administration Lorazepam 0.5 mg 08/01/17 23:47 Ativan PO Q4H PRN Magnesium Hydroxide 30 ml 08/02/17 10:27 08/03/17 12:50 Mom PO 30 ml DAILY PRN Administration Constipation Polyethylene Glycol 17 gm 08/02/17 09:00 08/05/17 08:48 Miralax PO 17 gm DAILY [facility] Administration Potassium Chloride 10 meq 08/05/17 08:00 08/05/17 08:48 K-Dur 10 Meq Tablet PO 10 meq WB [facility] Administration Rivaroxaban 15 mg 08/06/17 17:30 Xarelto PO BIDWM [facility] Sodium Chloride 10 ml 08/02/17 18:03 08/04/17 21:06 Iv Flush IV 10 ml PRN PRN Administration Flushing Sodium Chloride 500 ml 08/02/17 18:03 08/03/17 17:25 Normal Saline IV 500 ml PRN PRN Administration Sodium Phosphate 1 enema 08/03/17 14:24 08/03/17 14:27 Fleet Enema [place] 1 enema PRN PRN Administration Discontinued Medications Generic Name Dose Route Start Last Admin Trade Name Freq PRN Reason Stop Dose Admin Cefdinir 300 mg 08/01/17 21:00 Omnicef PO Q12HR VALENCIA Cefdinir 300 mg 08/01/17 21:00 Omnicef PO Q12HR [facility] Ceftriaxone Sodium 500 mg 08/01/17 23:49 08/02/17 00:11 Rocephin IM 08/01/17 23:50 500 mg O ONE Administration Enoxaparin Sodium 100 mg 08/05/17 18:30 08/05/17 19:10 Lovenox SQ 100 mg BID VALENCIA Administration Furosemide 40 mg 08/01/17 21:00 08/04/17 21:06 Lasix 40 Mg/4 Ml IVP 40 mg Q12HR VALENCIA Administration Ceftriaxone Sodium 1 g/ Sodium 100 mls @ 200 mls/hr 08/01/17 19:00 08/04/17 19:45 Chloride IV Infused Q24H [facility] Infusion Lorazepam 0.5 mg 08/01/17 21:25 08/01/17 21:51 Ativan Inj IVP 0.5 mg Q4H PRN Administration Morphine Sulfate 2 mg 08/01/17 21:24 08/01/17 21:54 Morphine Sulfate Inj IVP 2 mg Q2H PRN Administration Pain Pharmacy Consult each 08/04/17 21:14 Pharmacy Consult - Fall Risk [facility] 08/04/17 21:15 ONE TIME ONE Potassium Chloride 10 meq 08/02/17 08:00 08/04/17 17:41 Micro-K 10 Meq Capsule PO 10 meq BIDWM [facility]ENCIA Administration
--- NOTE | 2017-08-06 09:31 | CT Scan Report ---
Indication: ABDOMINAL PAIN PROCEDURE: CT chest abd/pelvis w con: Encounter: Subsequent Comparison: None Technique: Axial CT images were performed through the chest, abdomen and pelvis after the administration of intravenous contrast. Coronal and sagittal two-dimensional reformats. Automated Exposure Control and Iterative Reconstruction dose reducing techniques were utilized. Contrast: Visipaque 320 100 mL Findings: Chest: Atelectasis in both lungs. No pneumothorax. Significant respiratory motion artifact. The exam was obtained in expiration. No axillary or mediastinal adenopathy. There are large filling defects seen within the distal main pulmonary arteries extending into the segmental and subsegmental pulmonary artery branches of all lobes. There is enlargement of the right heart with paradoxical bowing of the interventricular septum. Heart is mildly enlarged. No pericardial effusion. Abdomen/pelvis: Multiple large hepatic cysts. Small gallstone in the gallbladder neck. Distended stomach. The spleen is unremarkable. The pancreas is grossly normal. The adrenal glands and kidneys are unremarkable. Bladder is mildly distended. Prostate and rectum are normal. No free fluid. No bowel obstruction. Bone windows show degenerative change and scoliosis in the spine. Impression: 1. Significant bilateral pulmonary emboli with evidence of right heart strain. Recommend cardiology evaluation. 2. Multifocal atelectasis. 3. No acute disease process seen in the abdomen or pelvis. There is a preliminary report by [employer]. .
[2017-08-06] MEDS: POLYETHYL GLYCOL 3350 17gm PACKET PO SCH (09:47)
[2017-08-06] MEDS: CARVEDILOL 12.5 MG TABLET PO SCH ×2 (09:47→17:46)
[2017-08-06] MEDS: ASPIRIN 81 MG CHEWABLE TABLET PO SCH (09:47)
[2017-08-06] MEDS: ACETAMINOPHEN 325 MG TABLET PO PRN ×2 (09:55→17:46)
[2017-08-06] MEDS: RIVAROXABAN 15 MG TABLET PO SCH (17:46)
[2017-08-07] MEDS: ALBUTEROL/IPRATROPIUM 2.5mg-0.5mg/3ml NEB AEROSOL SCH ×2 (07:14→10:57)
--- NOTE | 2017-08-07 07:38 | Discharge Summary ---
Providers Date of admission: 08/01/17 18:29 Primary care physician: Bowen Pastor MD Consults: 08/02/17 00:33 Infusion Therapy Consult [CONS] Routine Comment: needs midline placed in am 08/02/17 08/04/17 13:30 Physician Consult [CONS] Routine Consulting Provider: Cash Vega Reason For Exam: SNU Ordering Provider has Notified Meter Engineer: Yes 08/05/17 07:13 Physician Consult [CONS] Routine Consulting Provider: Erinn Mathur Reason For Exam: elevated WBC on antibiotics Ordering Provider has Notified Meter Engineer: No Diagnosis - Discharge Diagnosis (1) Acute exacerbation of chronic obstructive airways disease Status: Acute (2) Congestive heart failure Status: Acute (3) Acute exacerbation of CHF (congestive heart failure) Status: Acute (4) Alzheimer's dementia without behavioral disturbance Status: Chronic (5) Sepsis Status: Acute (6) Delirium due to another medical condition Status: Suspected (7) Back pain Status: Acute (8) Abdominal distension Status: Suspected (9) Pulmonary embolism Status: Acute (10) Acute on chronic renal failure Status: Acute Summary Hospital course: He was admitted with increasing shortness of breath. It was 24 hours after discharge from hospitalization for CHF and COPD exacerbation. He was thought to have had an increase in CHF and COPD. This was secondary to his hypoxia on admission. His white count remained elevated during the hospitalization and I consulted infectious disease. It was supposed that he had possible pneumonia. He had been on Rocephin. This was rolled out in Rocephin was discontinued. CT scan of the chest/abdomen/pelvis was done and revealed pulmonary emboli. Patient was started on Lovenox and then switch to xarelto. He did have a reaction to the contrast and developed acute renal failure on top of chronic renal failure. This was stable at the time of discharge. - Time Spent with Patient Total time spent providing and/or coordinating discharge services: Exam Vital signs: Temperature 96.3 F L 08/07/17 04:42 Pulse Rate 88 08/07/17 04:42 Respiratory Rate 24 08/07/17 07:15 Blood Pressure 108/71 08/07/17 04:42 Pulse Oximetry 93 08/07/17 07:15 - Constitutional no acute distress - Routine Neck Exam Present: supple - Routine Respiratory Exam Present: CTA bilaterally - Routine Cardiovascular Exam Present: irregularly irregular - Routine Abdominal Exam Present: soft, normoactive bowel sounds - Routine Extremities Exam Present: no edema DS: Data Labs on day of discharge: Labs from last 24 hours 08/07/17 08/07/17 05:02 05:02 WBC 18.7 H RBC 4.01 L Hgb 12.9 L Hct 38.8 L MCV 96.8 MCH 32.2 MCHC 33.2 RDW Std Deviation 47.8 Plt Count 140 MPV 12.0 Neutrophils % (Manual) 90.0 H Band Neutrophils % 1.0 Lymphocytes % (Manual) 9.0 L Neutrophils # (Manual) 16.8 H Band Neutrophils # 0.2 Lymphocytes # (Manual) 1.7 RBC Morph Comment Normal Turbidity < 20 Sodium 140 Potassium 4.6 Chloride 102 Carbon Dioxide 29 Anion Gap 9 BUN 71.0 H* Creatinine 2.4 H D GFR Calculation 27 BUN/Creatinine Ratio 30 H Glucose 133 H Calculated Osmolality 292 H Calcium 8.4 Icterus Index < 2 Specimen Hemolysis < 15 DS: Plan - Discharge Medications/Orders Prescriptions: New Furosemide [Lasix 40 mg Tab] 40 mg PO DAILY tab PEG 3350 17gm PACKET [Miralax] 17 gm PO DAILY packet Potassium Chloride [K-DUR 10 mEq Tablet] 10 meq PO WB tab Rivaroxaban [Xarelto] 15 mg PO BIDWM tab Acetaminophen [Tylenol] 650 mg PO Q8H PRN tab PRN Reason: Pain Albuterol/Ipratropium [Duoneb] 3 ml AEROSOL RTQID each Continue Carvedilol [Coreg] 12.5 mg PO BIDWM tab Lisinopril [Prinivil] 20 mg PO DAILY tab Discontinued Cefdinir 300 mg PO Q12HR 4 Days cap Aspirin Chewable [ASA] 81 mg PO DAILY tab.chew - Patient/Caregiver Discharge Instructions Patient Instructions: [facility] Congestive Heart Failure, COPD (Chronic Obstructive Pulmonary Disease) (GEN) - Follow up Plan Disposition: 03 To [facility] Not [facility] (SNF)
--- NOTE | 2017-08-07 09:16 | ID Progress Note ---
Subjective Date: 08/07/17 Subjective: Mr. Bradshaw denies shortness of breath. He denies chest pain, N/V/D. He denies any pain. Exam Vital Signs: Temperature 96.3 F L 08/07/17 04:42 Pulse Rate 88 08/07/17 04:42 Respiratory Rate 24 08/07/17 07:15 Blood Pressure 108/71 08/07/17 04:42 Pulse Oximetry 93 08/07/17 07:15 Height/Weight/BMI: Height 1.7 m Weight 101.4 kg Body Mass Index 34.4 - Constitutional Present: no acute distress, well nourished, well developed - Routine HEENT Exam Head: Present: normocephalic, atraumatic Eye: Present: EOMI, PERRL ENT: Present: mucous membranes dry, oropharynx clear - Routine Neck Exam Present: supple - Routine Respiratory Exam Present: CTA bilaterally Comments: On O2 - Routine Cardiovascular Exam Present: RRR - Routine Abdominal Exam Present: soft, normoactive bowel sounds, non tender, distended (mild) - Routine Extremities Exam Present: edema (trace LE). Absent: cyanosis, clubbing - Routine Skin Exam Present: intact. Absent: rash - Routine Neurological Exam Present: alert, CN II-XII intact, normal speech oriented to year - Routine Psychiatric Exam Present: normal affect Results - Labs CBC & Chem 7: 08/07/17 05:02 08/07/17 05:02 Microbiology Results: Microbiology 08/01/17 19:28 Peripheral/Iv Start Blood Culture - Final No Growth After 5 Days 08/01/17 19:21 Peripheral/Iv Start Blood Culture - Final No Growth After 5 Days - Impressions = = = = = = = = = = = = = = = = = = = = = = = = = = = = = = = = = = = = = = = = = = = = = = = = = = = = = = = = = = = Date of Exam: 08/05/17 Ordering Provider: Bowen Pastor MD Type of Exam(s): CT chest abd/pelvis w con Reason for Exam(s): ABDOMINAL PAIN Indication: ABDOMINAL PAIN PROCEDURE: CT chest abd/pelvis w con: Encounter: Subsequent Comparison: None Technique: Axial CT images were performed through the chest, abdomen and pelvis after the administration of intravenous contrast. Coronal and sagittal two-dimensional reformats. Automated Exposure Control and Iterative Reconstruction dose reducing techniques were utilized. Contrast: Visipaque 320 100 mL Findings: Chest: Atelectasis in both lungs. No pneumothorax. Significant respiratory motion artifact. The exam was obtained in expiration. No axillary or mediastinal adenopathy. There are large filling defects seen within the distal main pulmonary arteries extending into the segmental and subsegmental pulmonary artery branches of all lobes. There is enlargement of the right heart with paradoxical bowing of the interventricular septum. Heart is mildly enlarged. No pericardial effusion. Abdomen/pelvis: Multiple large hepatic cysts. Small gallstone in the gallbladder neck. Distended stomach. The spleen is unremarkable. The pancreas is grossly normal. The adrenal glands and kidneys are unremarkable. Bladder is mildly distended. Prostate and rectum are normal. No free fluid. No bowel obstruction. Bone windows show degenerative change and scoliosis in the spine. Impression: 1. Significant bilateral pulmonary emboli with evidence of right heart strain. Recommend cardiology evaluation. 2. Multifocal atelectasis. 3. No acute disease process seen in the abdomen or pelvis. There is a preliminary report by [email or web address]. . Impression: Leukocytosis, due to bilateral PEs Acute hypoxic respiratory failure secondary to bilateral PEs Ileus on KUB CHF vs COPD exacerbation EF 55% on recent echo Peripheral edema Alzheimer's dementia Recommendation: I recommend continuing to monitor him off of antibiotics. I don't believe that he is actively infected. Discussed with Dr. Pastor who is planning to discharge him to a facility today.
[2017-08-07] MEDS: ASPIRIN 81 MG CHEWABLE TABLET PO SCH (09:29)
[2017-08-07] MEDS: RIVAROXABAN 15 MG TABLET PO SCH (09:29)
[2017-08-07] MEDS: POLYETHYL GLYCOL 3350 17gm PACKET PO SCH (09:29)
[2017-08-07] MEDS: CARVEDILOL 12.5 MG TABLET PO SCH (09:29)
[2017-08-07 11:00] VITALS: RESP 22; O2SAT 91
[2017-08-07 12:31] VITALS: BP 110/68; PULSE 73; TEMP 97.1
[2017-08-07] MEDS: ACETAMINOPHEN 325 MG TABLET PO PRN (12:32)
== END 2017-08-07 13:10 | DRG 175 ==
LOC: MED
PROVIDERS: ADMIT Family Medicine; ATTEND Family Medicine